=== PATIENT | female | born 1950 ===

== ENCOUNTER 2017-12-13 06:57 | Emergency (ER) | payer MEDICARE, MEDICAID ==
[2017-12-13 07:22] VITALS: BP 136/54; RESP 18; O2SAT 99
[2017-12-13] MEDS ORDERED: Naproxen 500 MG TAB PO STA (07:55)
--- NOTE | 2017-12-13 08:39 | ED PDOC ---
HPI: General Adult Time Seen by Provider: 12/13/17 07:12 Chief Complaint (Nursing): Flu-like Symptoms Chief Complaint (Provider): Flu-like Symptoms History Per: Patient History/Exam Limitations: no limitations Onset/Duration Of Symptoms: Days (x3 days) Current Symptoms Are (Timing): Still Present Additional Complaint(s): 67 y/o female presents to the ED complaining of fever and sore throat x 3days and left leg pain x 4 days. Patient states that she took Advil with some relief. Denies any further medical complaints. Past Medical History Reviewed: Historical Data, Nursing Documentation, Vital Signs Vital Signs: Last Vital Signs Temp 102.6 F H 12/13/17 07:19 Pulse 98 H 12/13/17 07:19 Resp 18 12/13/17 07:19 BP 136/54 L 12/13/17 07:19 Pulse Ox 99 12/13/17 08:45 - Medical History PMH: HTN - Surgical History Other surgeries: Tubal Ligation - Family History Family History: States: Unknown Family Hx - Social History Current smoker - smoking cessation education provided: No (Never smoked) Alcohol: None Drugs: Denies - Home Medications Home Medications: Ambulatory Orders Medication Instructions Recorded Lisinopril [Zestril] 5 mg PO DAILY 12/13/17 Naproxen [Naprosyn] 500 mg PO BID PRN #20 tablet 12/13/17 Oseltamivir Phosphate [Tamiflu] 75 mg PO BID #10 capsule 12/13/17 - Allergies Allergies/Adverse Reactions: Allergies Allergy/AdvReac Type Severity Reaction Status Date / Time No Known Allergies Allergy Verified 12/13/17 07:16 Review of Systems ROS Statement: Except As Marked, All Systems Reviewed And Found Negative (As per HPI, otherwise negative) Constitutional: Positive for: Fever ENT: Positive for: Other (Sore throat) Musculoskeletal: Positive for: Leg Pain (Left leg pain) Physical Exam - Reviewed Nursing Documentation Reviewed: Yes Vital Signs Reviewed: Yes - Physical Exam Appears: Positive for: Well, Non-toxic, No Acute Distress Head Exam: Positive for: ATRAUMATIC, NORMAL INSPECTION, NORMOCEPHALIC Skin: Positive for: Normal Color, Warm, Dry Eye Exam: Positive for: Normal appearance, EOMI, PERRL ENT: Positive for: Normal ENT Inspection Neck: Positive for: Normal, Painless ROM, Supple Cardiovascular/Chest: Positive for: Regular Rate, Rhythm. Negative for: Murmur Respiratory: Positive for: Normal Breath Sounds. Negative for: Accessory Muscle Use, Respiratory Distress Gastrointestinal/Abdominal: Positive for: Normal Exam, Bowel Sounds, Soft. Negative for: Tenderness Back: Positive for: Normal Inspection Extremity: Positive for: Normal ROM (Left leg), Deformity. Negative for: Tenderness, Pedal Edema, Calf Tenderness, Swelling Neurologic/Psych: Positive for: Alert, Oriented (x3) - ECG O2 Sat by Pulse Oximetry: 99 (RA) Pulse Ox Interpretation: Normal - Radiology X-Ray: Viewed By Me X-Ray Interpretation: No Acute Disease - Progress Re-evaluation Time: 09:05 Condition: Improved Medical Decision Making Medical Decision Making: Time: 07:50 Plan: Chest x-ray Naproxen 500mg PO Left Hip x-ray Influenza A B Rapid strep Scribe Attestation: Documented by Debbie Cooper acting as a scribe for Judy Lopez MD. Scribe Attestation: All medical record entries made by the Scribe were at my direction and personally dictated by me. I have reviewed the chart and agree that the record accurately reflects my personal performance of the history, physical exam, medical decision making, and the department course for this patient. I have also personally directed, reviewed, and agree with the discharge instructions and disposition. Disposition - Clinical Impression Clinical Impression: Influenza B - Patient ED Disposition Is Patient to be Admitted: No Doctor Will See Patient In The: Office Counseled Patient/Family Regarding: Diagnosis, Need For Followup, Rx Given - Disposition Disposition: Routine/Home Disposition Time: 09:05 Condition: STABLE Prescriptions: Naproxen [Naprosyn] 500 mg PO BID PRN #20 tablet PRN Reason: Pain, Moderate (4-7) Oseltamivir Phosphate [Tamiflu] 75 mg PO BID #10 capsule Instructions: Influenza (ED) Forms: [employer] (Singaporean) Print Language: CZECH - POA Present On Arrival: None
[2017-12-13] MEDS ORDERED: Naproxen 500 MG TAB PO SCH (09:00)
--- NOTE | 2017-12-13 09:20 | RAD ---
HISTORY: FEVER, COUGH COMPARISON: Chest radiograph dated 01/13/2014. TECHNIQUE: Chest PA and lateral FINDINGS: LUNGS: No active pulmonary disease. PLEURA: No significant pleural effusion identified. No pneumothorax apparent. CARDIOVASCULAR: Normal. OSSEOUS STRUCTURES: Unchanged. VISUALIZED UPPER ABDOMEN: Normal. OTHER FINDINGS: None. IMPRESSION: No active disease.
--- NOTE | 2017-12-13 09:21 | RAD ---
PROCEDURE: Left Hip X-ray Radiographs. HISTORY: LEFT HIP/LEG PAIN FOR 4 DAYS COMPARISON: None. FINDINGS: BONES: No acute fracture. JOINTS: Normal. SOFT TISSUES: Normal. OTHER FINDINGS: None. IMPRESSION: No demonstrated fracture or dislocation.
[2017-12-13 10:12] VITALS: PULSE 86; TEMP 99.4
== END 2017-12-13 10:11 | disposition home or self-care (01) ==
LOC: H.ER 06:57
DX: J10.1 Influenza due to other identified influenza virus with other respiratory manifestations (principal); M79.605 Pain in left leg; I10 Essential (primary) hypertension

== ENCOUNTER 2017-12-22 07:34 | Emergency (ER) | payer MEDICARE, MEDICAID ==
[2017-12-22 07:37] VITALS: BMI 24.0
[2017-12-22 07:39] VITALS: BP 166/70; PULSE 76; RESP 17; TEMP 98.2; O2SAT 100
--- NOTE | 2017-12-22 07:54 | ED PDOC ---
Lower Extremity Pain/Injury Time Seen by Provider: 12/22/17 07:46 Chief Complaint (Nursing): Lower Extremity Problem/Injury Chief Complaint (Provider): Left extremity pain History Per: Patient History/Exam Limitations: no limitations Onset/Duration Of Symptoms: Days Current Symptoms Are (Timing): Still Present Additional History Per: Patient Additional Complaint(s): 67yo female with history of hypertension, presents to ED with complaints of left buttock pain, radiating down the back of her left leg for the past 2 weeks , worsening for the past 2 days. Patient reports associated parasthesia but denies any weakness. She denies any trauma or injury to the extremity. Patient was seen here 2 days ago, was given Naprosyn which she has taken with no relief. She has no other complaints. Past Medical History Reviewed: Historical Data, Nursing Documentation, Vital Signs Vital Signs: Last Vital Signs Temp 98.2 F 12/22/17 07:38 Pulse 76 12/22/17 07:38 Resp 17 12/22/17 07:38 BP 166/70 H 12/22/17 07:38 Pulse Ox 100 12/22/17 07:38 - Medical History PMH: HTN - Surgical History Surgical History: No Surg Hx - Family History Family History: States: Unknown Family Hx - Home Medications Home Medications: Ambulatory Orders Medication Instructions Recorded Lisinopril [Zestril] 5 mg PO DAILY 12/13/17 Naproxen [Naprosyn] 500 mg PO BID PRN #20 tablet 12/13/17 Oseltamivir Phosphate [Tamiflu] 75 mg PO BID #10 capsule 12/13/17 diaZEpam [Valium] 5 mg PO Q8 #10 tab 12/22/17 predniSONE [predniSONE Tab] 10 mg PO TID #15 tab 12/22/17 - Allergies Allergies/Adverse Reactions: Allergies Allergy/AdvReac Type Severity Reaction Status Date / Time No Known Allergies Allergy Verified 12/22/17 07:44 Review of Systems ROS Statement: Except As Marked, All Systems Reviewed And Found Negative Musculoskeletal: Positive for: Leg Pain (left buttock radiating down left extremity associated with parestheisa) Neurological: Negative for: Weakness, Numbness Physical Exam - Reviewed Nursing Documentation Reviewed: Yes Vital Signs Reviewed: Yes - Physical Exam Appears: Positive for: Non-toxic Head Exam: Positive for: ATRAUMATIC, NORMAL INSPECTION, NORMOCEPHALIC Skin: Positive for: Normal Color Eye Exam: Positive for: Normal appearance Neck: Positive for: Supple Cardiovascular/Chest: Positive for: Regular Rate, Rhythm Respiratory: Positive for: Normal Breath Sounds. Negative for: Respiratory Distress Back: Positive for: Other (left parasacral tenderness). Negative for: Vertebral Tenderness Extremity: Positive for: Normal ROM. Negative for: Tenderness, Deformity, Swelling Neurologic/Psych: Positive for: Alert, Oriented. Negative for: Motor/Sensory Deficits - ECG O2 Sat by Pulse Oximetry: 100 (RA) Pulse Ox Interpretation: Normal - Progress Re-evaluation Time: 09:22 Condition: Improved Medical Decision Making Medical Decision Making: Impression: Left lower extremity pain Plan: -- Toradol 30 mg IM -- Valium 5mg PO Scribe Attestation: Documented by Emily Waters, acting as a scribe for Javed Frances MD. Provider Scribe Attestation: All medical record entries made by the Scribe were at my direction and personally dictated by me. I have reviewed the chart and agree that the record accurately reflects my personal performance of the history, physical exam, medical decision making, and the department course for this patient. I have also personally directed, reviewed, and agree with the discharge instructions and disposition. Disposition - Clinical Impression Clinical Impression: Back pain, Radiculopathy - Patient ED Disposition Is Patient to be Admitted: No Counseled Patient/Family Regarding: Diagnosis, Need For Followup, Rx Given - Disposition Referrals: Feliz De Leon MD [Staff Provider] - Disposition: Routine/Home Disposition Time: 09:23 Condition: FAIR Prescriptions: diaZEpam [Valium] 5 mg PO Q8 #10 tab predniSONE [predniSONE Tab] 10 mg PO TID #15 tab Instructions: Acute Low Back Pain (ED), Lumbar Radiculopathy (ED) Forms: [employer] (Slovak) Print Language: AMERICAN
== END 2017-12-22 10:00 | disposition home or self-care (01) ==
LOC: H.ER 07:34
DX: M54.16 Radiculopathy, lumbar region (principal); I10 Essential (primary) hypertension
CPT/HCPCS: 96372; 99284; J1885